=== PATIENT | male | born 1960 | race Caucasian/White ===

== ENCOUNTER → 2025-01-29 12:12 | Outpatient (REF) | payer OTHER, SELFPAY | LOC: RAD 12:12 | PROVIDERS: ATTENDING PHYSICIAN Student in an Organized Health Care Education/Training Program; FAMILY PHYSICIAN Physician Assistant Medical | DX: D58.2 Other hemoglobinopathies (principal); M10.9 Gout, unspecified; M25.50 Pain in unspecified joint; R76.8 Other specified abnormal immunological findings in serum; R89.9 Unspecified abnormal finding in specimens from other organs, systems and tissues; Z82.69 Family history of other diseases of the musculoskeletal system and connective tissue | CPT/HCPCS: 73630 ==